=== PATIENT | female | born 1960 | race Caucasian/White ===

== ENCOUNTER → 2023-04-11 | Outpatient (CLI) | payer BC, SELFPAY ==
--- NOTE | 2023-04-11 11:09 | MRI_ITS ---
STUDY: MR PELVIS WITH T WITHOUT CONTRAST REASON FOR EXAM: Female, 62 years old. ENDOCERVICAL ADENOCARCINOMA STAGING TECHNIQUE: Standardized fat and water weighted pulse sequences were obtained in all 3 orthogonal planes, pre-and post contrast administration. IV 10 ml CLARISCAN was administered for the contrast portion of the examination. COMPARISON: None. FINDINGS: Normal urinary bladder. Visualized hollow viscus structures are unremarkable. No obvious rectal wall thickening. There is no pelvic fluid. Normal visualized pelvic arteries. No bone marrow edema. Normal abdominal wall. 24 x 22 x 27 mm intermediate signal intensity mass of the anterior cervix on image 17 series 5 and image 15 series 4. The mass involves the upper most portion of the vagina (upper third), along the anterior and inferior border of the mass on image 15 of series 4 and image 14 series 11. No pelvic sidewall adenopathy or mass involvement. A well delineated fat plane between the mass and the posterior urinary bladder wall (no bladder involvement). There is no discrete mass involving the rectum. MRI/Pelvis W/WO Contrast IMPRESSION: 1. Cervical mass as above correlating to 2018 FIGO stage IIA1 Electronically Signed: Barrett Avery ([place]), at 16:53 EDT ,
== END | disposition home or self-care (01) ==
PROVIDERS: PCP Student in an Organized Health Care Education/Training Program; Referring Provider Obstetrics & Gynecology; Visit Provider Obstetrics & Gynecology
DX: C53.0 Malignant neoplasm of endocervix (principal)
CPT/HCPCS: 72197; A9575

== ENCOUNTER → 2023-04-30 | Outpatient (CLI) | payer BC, SELFPAY ==
--- NOTE | 2023-04-30 11:30 | PET_ITS ---
EXAMINATION: FDG PET-CT INDICATIONS: A 62-year-old female with a history of endometrial carcinoma presenting for initial staging examination. COMPARISON EXAMINATION: MRI of the pelvis report dated 04/11/23. INDEX LESION SIZE SUV INTERPRETATION Uterus, uterine cervix 30.4 mm largest 8.6 max Fulfills quantitative criteria for viable neoplasm. Right and left lobe thyroid colloid 3.0 quantitative criteria for viable neoplasm are not fulfilled. TECHNIQUE: Following the intravenous administration of 13.9 mCi of F-18 deoxyglucose via the left antecubital fossa, multiplanar image acquisitions of the head, neck, chest, abdomen and pelvis to level of mid-thigh, lower extremities obtained at one hour post radiopharmaceutical administration contemporaneously interpreted with the current CT of the head, neck, chest, abdomen and pelvis to level of mid-thigh, lower extremities dated 04/30/23 via coregistration and MRI of the pelvis report dated 04/11/23 reveal: SERUM GLUCOSE LEVEL: 99 mg/dl. HEIGHT: 61 inches. WEIGHT: 118 lbs. FINDINGS: Head/Neck: There is no evidence of abnormal increased glucose metabolism in the pharyngeal mucosal space, parapharyngeal space, bilateral-lateral and anterior neck, hypopharynx and distribution of the laryngeal structures. The visualized portion of the cerebral cortical-subcortical structures demonstrate symmetric and preserved glucose metabolism. Facilitated uptake is noted in the right-left thyroid colloid. The calculated maximum standard uptake value is 3.0. Strict quantitative criteria for primary thyroidal neoplasm are not fulfilled. CHEST: There is no quantitative scintigraphic evidence of abnormal increased glucose metabolism within the context of the bilateral hemithorax pulmonary parenchyma, right and left hemithoracic pleural interface, mediastinal structures and thoracic perihilum.? Prominent tracer uptake is noted in the descending thoracic aorta commensurate with activated leukocytes associated with atherosclerotic plaque formation. Pertinent chest CT findings are as follows. A calcified pleural based density noted in the left upper posterior lung zone is ametabolic. Right and left axillary soft tissue densities are nonglucose avid. There is atherosclerotic calcification defined in the thoracic aorta without evidence of dilatation-aneurysm formation. Coronary arterial calcification is observed. Abdomen/Pelvis: Facilitated FDG uptake is noted in the lower pelvis posterior to the urinary bladder associated with the uterus, uterine cervix. The calculated maximum standard uptake value is 8.6. The maximum axial diameter of the metabolic, morphologic abnormality is 30.4 mm. Normal physiologic distribution of the radiopharmaceutical is apparent in the hepatic and splenic parenchyma, both renal units, bladder and visualized intestinal tract. Diffuse radiopharmaceutical concentration is noted in all four quadrants of the abdomen and pelvis. Pertinent abdomen and pelvis CT findings are as follows. Right and left inguinal soft tissue densities are ametabolic. There is atherosclerotic calcification defined in the abdominal aorta without evidence of dilatation-aneurysm formation. Abdominal-pelvic arterial calcification is defined. Colonic diverticula are defined without evidence of diverticulitis. Bilateral inguinal soft tissue densities with fatty hilus are nonglucose avid. Skeletal: There is no visualized sclerotic-lytic changes manifest on review of the appendicular-axial skeletal structures. Degenerative changes are noted in the cervical, thoracic and lumbar spine. PET/PET/CT Tumor Base -Thigh Init IMPRESSION: 1. ABNORMAL EXAMINATION INDICATIVE OF MALIGNANT-VIABLE NEOPLASM. 2. Increased radiopharmaceutical concentration noted in the uterine cervix, uterus fulfills quantitative criteria for viable neoplasm. 3. Facilitated FDG uptake noted in the right and left lobe thyroid colloid does not fulfill strict quantitative criteria for primary thyroidal neoplasm. (Becky Edmondson et al, Journal of Clinical Endocrinology and Metabolism, 88:4100, 2003). Correlation with thyroid ultrasound may be of benefit. Electronic Signature Peter Shetty D.O. Accurate Quantification of SUVs for this report are calculated using the exclusive [employer]. ([place] Patent No. [id number] [id number] 983 B2 [phone] [place] patent [phone]). Standardization and correction of the FDG SUV metric via [employer] technology allow for vendor non-specific objective quantitative examination comparison and optimization of the sensitivity and specificity of the FDG PET-CT examination. Electronically Signed: Peter Shetty, at 22:49 EDT ,
== END | disposition home or self-care (01) ==
PROVIDERS: PCP Student in an Organized Health Care Education/Training Program; Referring Provider Obstetrics & Gynecology; Visit Provider Obstetrics & Gynecology
DX: C53.0 Malignant neoplasm of endocervix (principal)
CPT/HCPCS: 78815; A9552